=== PATIENT | male | born 1960 | race Native Hawaiian/Other Pacific Islander ===

== ENCOUNTER 2020-03-04 19:32 | Emergency (ER) | payer OTHER ==
[~2020-03-04] VITALS: Ht 142.2 cm; Wt 68.0 kg
[2020-03-04 20:13] LABS: PLATELET COUNT 233 K/uL (142-355)
[2020-03-04 20:20] LABS: POTASSIUM 4.4 mmol/L (3.6-5.2)
[2020-03-04 23:05] VITALS: BP 154/82; TEMP 98.3
[2020-03-04] MEDS ORDERED: BENZ1TAB43 PEG (23:55)
[2020-03-04] MEDS ORDERED: CARBIDOPA-LEVODOPA PEG (23:58)
[2020-03-05] MEDS ORDERED: VALP250S3 PEG (00:01)
[2020-03-05] MEDS ORDERED: DIAZ5TAB20 PEG (00:04)
[2020-03-05] MEDS ORDERED: DULOXETINE PEG (00:07)
[2020-03-05] MEDS ORDERED: [UNRECOGNIZED DRUG - OTHER] PEG (00:07)
[2020-03-05] MEDS ORDERED: FERROUS SU220 MG/5 M PEG (00:10)
[2020-03-05] MEDS ORDERED: GLUCAGON EMER1 MG/ML SC (00:18)
[2020-03-05] MEDS ORDERED: LEVE5MLUD PEG (00:21)
[2020-03-05] MEDS ORDERED: METF500T PEG (00:22)
[2020-03-05] MEDS ORDERED: METO-837 PEG (00:25)
[2020-03-05] MEDS ORDERED: NITROFURANTOIN100 MG PEG (00:27)
[2020-03-05] MEDS ORDERED: NOVOLOG FL100 UNIT/M SC (00:36)
[2020-03-05] MEDS ORDERED: OMEPRAZOLE DR20 MG PEG (00:38)
[2020-03-05] MEDS ORDERED: QUETIAPINE200 MG PEG (00:39)
[2020-03-05] MEDS ORDERED: SODI1TAB PEG (00:42)
[2020-03-05] MEDS ORDERED: TYLENOL325 MG PEG (00:43)
[2020-03-05] MEDS ORDERED: ALBUTEROL SULFATE INH (00:47)
[2020-03-10] MEDS ORDERED: VALPROIC ACID10 ML PEG ×2 (15:59)
[2020-03-10] MEDS ORDERED: ERTA1INJ2 IM (16:00)
[2020-03-10] MEDS ORDERED: BENZ1TAB43 PEG (16:00)
[2020-03-10] MEDS ORDERED: DULO30CA PO ×2 (16:00)
== END 2020-03-04 23:05 | disposition still patient (30) ==
LOC: ED 19:32
PROVIDERS: Hospitalist
DX: F25.8 Other schizoaffective disorders (principal); F03.91 Unspecified dementia, unspecified severity, with behavioral disturbance; Z91.5 Personal history of self-harm; Z11.59 Encounter for screening for other viral diseases; Z04.6 Encounter for general psychiatric examination, requested by authority
CPT/HCPCS: 36415; 80053; 81000; 85027; 87635; 93005; 99283; U0003

== ENCOUNTER 2020-07-26 09:44 | Emergency (ER) | payer OTHER ==
[~2020-07-26] VITALS: Ht 167.6 cm; Wt 78.5 kg
[~2020-07-26 09:44] MED LIST: ALBUTEROL SULFATE INH; AMLODIPINE BESYLATE PO; BENZ1TAB43 PEG; CARB25TA29 PO; DIAZ5TAB20 PEG; DULO30CA PO; DULOXETINE PEG; ENOX40IN SC; ERTA1INJ2 IM; FERROUS SU220 MG/5 M PEG; GLUCAGON EMER1 MG/ML SC; LEVE5MLUD PEG; MACRODANTIN100 MG PO; METF500T PEG; METO-837 PEG; METO100T37 PO; NITROFURANTOIN100 MG PEG; NOVOLOG FL100 UNIT/M SC; OMEPRAZOLE DR20 MG PEG; PANTOPRAZOLE 40MG TA PO; QUETIAPINE200 MG PEG; QUETIAPINE200 MG PO; SODI1TAB PEG; TYLENOL325 MG PEG; VALP250S3 PEG; VALPROIC A250 MG/5 M PO; VALPROIC ACID10 ML PEG; [UNRECOGNIZED DRUG - OTHER] PEG
[2020-07-26 11:58] VITALS: BP 124/77; TEMP 96.2
[2020-07-26] MEDS ORDERED: HALO5INJ3 IM (15:17)
[2020-07-26] MEDS ORDERED: LORA2INJ21 IM (15:17)
[2020-07-26] MEDS ORDERED: DULO30CA PO (15:17)
[2020-07-26] MEDS ORDERED: QUET100T2 PO (15:18)
[2020-07-26] MEDS ORDERED: VALPROIC ACID10 ML PO ×2 (15:19)
== END 2020-07-26 11:58 | disposition short-term general hospital (02) ==
LOC: ED 09:44
PROVIDERS: Hospitalist
PROC: 0T9B70Z Drainage of Bladder with Drainage Device, Via Natural or Artificial Opening (ICD-10-PCS; principal; 2020-07-26)
DX: S72.144A Nondisplaced intertrochanteric fracture of right femur, initial encounter for closed fracture (principal); S50.311A Abrasion of right elbow, initial encounter; W18.39XA Other fall on same level, initial encounter; Y92.238 Other place in hospital as the place of occurrence of the external cause
CPT/HCPCS: 36415; 51702; 81000; 85610; 85730; 87077; 87086; 87088; 87186; 96360; 96365; 96374; 96375; 99284; J1200; J2270; J2405; J3490

== ENCOUNTER 2021-04-14 02:21 | Emergency (ER) | payer OTHER ==
[~2021-04-14] VITALS: Ht 190.5 cm; Wt 98.0 kg
[2021-04-14 02:21] VITALS: BP 161/99; TEMP 98.1
[~2021-04-14 02:21] MED LIST changes: +HALO5INJ3 IM; +LORA2INJ21 IM; +QUET100T2 PO; +VALPROIC ACID10 ML PO
[2021-04-14 02:54] LABS: PLATELET COUNT 179 K/uL (142-355)
[2021-04-14 03:02] LABS: POTASSIUM 4.1 mmol/L (3.6-5.2)
[2021-04-14] MEDS ORDERED: OMEPRAZOLE DR40 MG PO (09:11)
[2021-04-14] MEDS ORDERED: SOD CHLORIDE1 GM PO (09:12)
[2021-04-14] MEDS ORDERED: TRAZ50TA36 PO (09:13)
[2021-04-14] MEDS ORDERED: MIRALAX17 GM PO (09:13)
[2021-04-14] MEDS ORDERED: SOMA350 MG PO (09:17)
[2021-04-14] MEDS ORDERED: CLON1TAB18 PO (09:18)
[2021-04-14] MEDS ORDERED: VALPROIC A250 MG/5 M PO (09:19)
[2021-04-14] MEDS ORDERED: MYLANT3 PO (09:19)
[2021-04-14] MEDS ORDERED: LOPERAMIDE2 MG PO (09:20)
== END 2021-04-14 03:30 | disposition still patient (30) ==
LOC: ED 02:21
PROVIDERS: Hospitalist
DX: F32.89 Other specified depressive episodes (principal); R45.851 Suicidal ideations; F31.89 Other bipolar disorder; F03.91 Unspecified dementia, unspecified severity, with behavioral disturbance; Z11.52 Encounter for screening for COVID-19; Z04.6 Encounter for general psychiatric examination, requested by authority
CPT/HCPCS: 36415; 80053; 80164; 85027; 87635; 93005; 99283; U0003

== ENCOUNTER 2021-04-29 16:28 | Emergency (ER) | payer OTHER ==
[~2021-04-29] VITALS: Ht 190.5 cm; Wt 98.9 kg
[~2021-04-29 16:28] MED LIST changes: +ARIPIPRAZOLE10 MG PO; +CLON0.5T36 PO; +CLON1TAB18 PO; +LEVE5MLUD PO; +LOPERAMIDE2 MG PO; +METH10TA64 PO; +MIRALAX17 GM PO; +MYLANT3 PO; +OMEPRAZOLE DR40 MG PO; +QUET25TA2 PO; +QUET300T PO; +SOD CHLORIDE1 GM PO; +SOMA350 MG PO; +TRAZ50TA36 PO
[2021-04-29 17:15] LABS: PLATELET COUNT 175 K/uL (142-355); POTASSIUM 4.6 mmol/L (3.6-5.2)
[2021-04-29 17:50] VITALS: BP 136/84; TEMP 97.6
[2021-04-30] MEDS ORDERED: LEVE500T5 PO (09:02)
[2021-04-30] MEDS ORDERED: ANTI-DIARRHE2 M1 PO (09:05)
== END 2021-04-29 17:50 | disposition still patient (30) ==
LOC: ED 16:28
PROVIDERS: Hospitalist
DX: F25.8 Other schizoaffective disorders (principal); R44.0 Auditory hallucinations; R44.1 Visual hallucinations; R45.851 Suicidal ideations; R45.850 Homicidal ideations; Z11.52 Encounter for screening for COVID-19; Z04.6 Encounter for general psychiatric examination, requested by authority
CPT/HCPCS: 80053; 81000; 85027; 87077; 87086; 87088; 87186; 87635; 93005; 99283; U0003